=== PATIENT | male | born 1935 ===

== ENCOUNTER 2018-08-12 13:59 | Inpatient (IN) ==
[2018-08-12] MEDS ORDERED: ALBUT/IPRATROP 3MG/0.5MG NEB 3 ML VIAL INH STA (14:22)
[2018-08-12] MEDS ORDERED: SODIUM CHLORIDE 0.9% 1000ML 1,000 ML IV SCH (14:30)
--- NOTE | 2018-08-12 14:40 | XRay Report ---
XR chest 1V portable HISTORY: 83 years-old Male Dyspnea acute shortness of breath COMPARISON: Chest radiograph 07/21/2011 TECHNIQUE: Portable AP view of the chest FINDINGS: Cardiac silhouette is upper limits of normal in size. New right hemidiaphragmatic elevation with righ t basilar opacities and blunting of the right costophrenic angle. No pneumothorax. The left lung is c lear. No overt pulmonary edema. Degenerative changes of the shoulders and spine. IMPRESSION: 1. Right basilar alveolar opacities with suggestion of small right pleural effusion. Correlate clinic ally to exclude pneumonia. 2. Mild right hemidiaphragmatic elevation. The above report was generated using voice recognition software. It may contain grammatical, syntax o r spelling errors. Electronically signed by: Óscar Enriquez M.D. 08/12/2018 2:38 PM
[2018-08-12 14:58] LABS: Appearance Urine Clear (Clear); Bilirubin Urine Negative (Negative); Color Urine Yellow; Glucose Urine UA Negative (Negative); Ketones Urine Negative (Negative); Leukocyte Esterase Urine Negative (Negative); Nitrite Urine Negative (Negative); Protein Urine Negative (Negative); Specific Gravity Urine 1.019 (1.000-1.030); Urobilinogen Urine Negative (Negative); pH Urine 5.5 (4.5-7.5)
[2018-08-12 15:08] LABS: Basophils # (auto) 0.01 K/uL (0-0.2); Basophils % (auto) 0.1 %; Eosinophils # (auto) 0.01 K/uL (0-0.5); Eosinophils % (auto) 0.1 %; Hematocrit (blood only) 47.5 % (42-52); Immature Granulocytes # (auto) 0.02 K/uL (0.00-0.02); Immature Granulocytes % (auto) 0.3 %; Lymphocytes # (auto) 0.98 K/uL (1.2-3.4); Mean Corpuscular Hgb Conc 33.7 g/dL (32-36); Mean Corpuscular Volume 100.6 fL (80-100); Mean Platelet Volume 11.7 fL (7.4-10.4); Monocytes # (auto) 0.05 K/uL (0.11-0.59); Monocytes % (auto) 0.7 %; Neutrophils # (auto) 6.47 K/uL (1.4-6.5); Neutrophils % (auto) 85.8 %; Platelet Count 167 K/uL (130-400); RDW Coefficient of Variation 12.4 % (11.5-14.5); RDW Standard Deviation 45.5 fL (36.4-46.3); Red Blood Count 4.72 M/uL (4.7-6.1); White Blood Count 7.54 K/uL (4.8-10.8)
[2018-08-12] MEDS ORDERED: PIPERACILL/TAZOBAC CONSULT ACTIVE PRN (15:12)
[2018-08-12] MEDS ORDERED: PIPERACILLIN/TAZOBACTAM 4.5 GM/120 ML BAG IV ONE (15:12)
[2018-08-12 15:16] LABS: INR 1.1 (0.9-1.1); Partial Thromboplastin Time 25.6 Seconds (21.0-31.0); Prothrombin Time 10.7 Seconds (9.0-12.0)
[2018-08-12 15:18] LABS: Influenza A virus by PCR Neg for Influ A (Neg); Influenza B virus by PCR Neg for Influ B (Neg)
[2018-08-12 15:19] LABS: Base Excess VBG -0.3 mEq/L; HCO3 VBG 27 mmol/L; Oxygen Saturation VBG < 60.0 %; PCO2 VBG 53 mmHg (38-50); PO2 VBG 28 mmHg; pH VBG 7.32 (7.36-7.41)
[2018-08-12 15:27] LABS: Alanine Aminotransferase 27 U/L (12-78); Albumin Level 3.8 gm/dl (3.4-5.0); Aspartate Aminotransferase 18 U/L (15-37); BUN Creatinine Ratio 12.2 (10-20); Blood Urea Nitrogen 15 mg/dl (7-18); Calcium 8.5 mg/dl (8.5-10.1); Carbon Dioxide 26 mmol/L (21-32); Chloride 109 mmol/L (98-107); Creatinine Clr Calc Pharmacy 57.1 ml/min; Est GFR (African American) 63.2; Est GFR (Non-African American) 54.5; Glucose 108 mg/dl (70-99); Potassium 4.5 mmol/L (3.5-5.1); Sodium 141 mmol/L (136-145)
[2018-08-12 15:32] LABS: Alkaline Phosphatase 59 U/L (45-117); Bilirubin,Total 0.5 mg/dl (0.2-1); Globulin 3.7 gm/dl (2.5-4.0); Total Protein 7.5 gm/dl (6.4-8.2); Troponin I < 0.015 ng/ml (0-0.045)
[2018-08-12] MEDS ORDERED: OPTIRAY 320 125ml IV PRN (15:59)
--- NOTE | 2018-08-12 16:11 | CT Scan Report ---
CT chest w con CLINICAL HISTORY: 83 years-old Male presenting with hypoxic just sedated . TECHNIQUE: Multidetector CT imaging of the chest was performed after the administration of intravenou s contrast. IV contrast: 118 mL of Optiray 320. One or more dose lowering techniques were used consis tent with the principles of ALARA (as low as reasonably achievable), including automatic exposure con trol, mA or kV adjustment to individual patient size, and/or use of iterative reconstruction. COMPARISON: Chest x-ray performed earlier today and chest x-ray from 2012. CT DOSE (mGy.cm): The estimated cumulative dose is 1108.13 mGy.cm. FINDINGS: Optimization Engineer topogram: Elevation of the right hemidiaphragm, unchanged. On soft tissue windows, normal thyroid and thoracic inlet. No axillary, supraclavicular, hilar, or me diastinal lymphadenopathy. Atherosclerosis of the aorta. Mild ectasia of the ascending aorta, which m easures 4.1 cm in diameter. Normal heart size. Coronary artery calcification. Slight mediastinal shif t to the left as a result of right hemidiaphragm elevation. No pericardial or pleural effusion. Upper abdomen normal. On lung windows, no pneumothorax. Partial obstruction of subsegmental right lower lobe airways. Segme ntal and lobar airways to the right middle and right lower lobes are patent though mildly narrowed, w hich may be result of the phase of respiration. Remainder of the airways are right widely patent. Ext ensive consolidation and volume loss of the majority of the right lower lobe and, to a lesser extent, right middle lobe. Mild bronchial wall thickening in the right upper lobe may be present. The left l henry is essentially clear. Evaluation of lung parenchyma mildly degraded by respiratory motion artifac t. On bone windows, degenerative changes of the spine. IMPRESSION: 1. Elevation of the right hemidiaphragm with significant atelectasis of the right lower lobe and to a lesser extent the right middle lobe. Subsegmental airways to these lobes may either be obstructed o r narrowed. More central airways remain patent. 2. Mild ectasia of the osseous and aorta, which measures 4.1 cm. Electronically signed by: Roberto Blackburn M.D. 08/12/2018 4:10 PM
[2018-08-12 17:26] LABS: HCO3 ABG 23 mmol/L (19-24); Oxygen Saturation ABG 74.7 % (90-95); PCO2 ABG 44 mmHg (35-46); PO2 ABG 42 mm/Hg (80-95); pH ABG 7.33 (7.35-7.45)
[2018-08-12 17:27] LABS: Allen Test POS (Pos)
--- NOTE | 2018-08-12 18:01 | Emergency Department Note ---
Entered by Robb Tang acting as a scribe for History of Present Illness General Chief complaint: Respiratory Problems Source: patient Limitations: no limitations History of Present Illness Provider complaint: Hypoxia Onset (ago): minute(s) Location: chest (Hypoxia) Pain Consistency: + constant Quality: + other (Hypoxia) Associated symptoms: + denies other symptoms Treatments prior to arrival: none The patient is an 83 year old male who presents to the Emergency Room from the surgical center for hypoxia that was noticed shortly prior to arrival. The patient and his state that the patient went for surgery this morning at 1015, 4 hours ago. He notes that he was to have his right rotator cuff repaired today. When they began the surgery they decided that there was no repair necessary, but they did perform debridement. As the patient was in the post-op waiting area he became hypoxic. The patient denies any chest pain, shortness of breath, nausea, vomiting, diarrhea, or dizziness/weakness. He has no history of asthma or COPD. The patient does have a history of TIA and was on a blood thinner, but stopped this about 2 weeks prior to the operation today. Home Medications Home Medications Medication Instructions Recorded Confirmed Type B-complex with vitamin C [Super B 1 tab PO DAILY 08/12/18 08/12/18 History Complex-Vitamin C] Ca carb-Ca gluc-Mg ox-Mg gluco 0 mg PO DAILY 08/12/18 08/12/18 History [Calcium Magnesium] aspirin 325 mg PO DAILY 08/12/18 08/12/18 History aspirin-dipyridamole [Aggrenox] 1 cap PO BID 08/12/18 08/12/18 History atorvastatin 40 mg PO DAILY 08/12/18 08/12/18 History diazepam 5 mg PO Q8 PRN 08/12/18 08/12/18 History multivitamin 1 tab PO DAILY 08/12/18 08/12/18 History oxycodone-acetaminophen [Percocet] 1 - 2 tab PO Q6H PRN 08/12/18 08/12/18 History turmeric root extract 1,053 mg PO DAILY 08/12/18 08/12/18 History zinc 15 mg PO DAILY 08/12/18 08/12/18 History Allergies Allergy/AdvReac Type Severity Reaction Status Date / Time No Known Allergies Allergy Unverified 08/12/18 14:38 Past Med/Surg History Social History marital status: Current Living Situation: Significant Other current occupational status: retired Other Information That Helps Us Care for You: No Feels Safe at Home: Yes Safety Concerns: Feels Safe At This Time Smoking Status: Never smoker Hx Alcohol Use: No Hx Substance Use: No Beliefs That Will Affect Care: None Preferred Language: Khmer Communication Ability: Effective Review of Systems See HPI for pertinent positives & negatives. and A total of 10 systems reviewed and were otherwise negative Physical Exam Vital Signs Vital Signs - 24 hr 08/12/18 14:06 08/12/18 14:10 08/12/18 14:29 Temperature 36.7 C Temperature Source Oral Sepsis Recent Fever Within 48 Hours No Sepsis New/Unexplained Change in Mental Status No Sepsis Action Taken by Nursing No Action Required Pulse Rate 106 H 100 H Pulse Rate [Apical] Pulse Rhythm Regular Regular Pulse Strength Normal Respiratory Rate 20 20 Respiratory Effort / Characteristics Non-Labored Respiratory Depth Normal Respiratory Pattern Regular Blood Pressure 137/84 Blood Pressure [Right Arm] Blood Pressure Mean 101 Blood Pressure Mean [Right Arm] Blood Pressure Position Sitting Pulse Oximetry 96 86 L Oxygen Delivery Method Non-rebreather Non-rebreather Non-rebreather Oxygen Flow Rate 15 15 15 Fraction of Inspired Oxygen 85 08/12/18 14:37 08/12/18 16:39 08/12/18 16:48 Temperature Temperature Source Sepsis Recent Fever Within 48 Hours Sepsis New/Unexplained Change in Mental Status Sepsis Action Taken by Nursing Pulse Rate 109 H Pulse Rate [Apical] 100 H Pulse Rhythm Pulse Strength Respiratory Rate 24 22 Respiratory Effort / Characteristics Spontaneous Short of Breath SOB on Exertion Respiratory Depth Respiratory Pattern Tachypnea Blood Pressure 161/87 H Blood Pressure [Right Arm] 151/97 H Blood Pressure Mean 111 Blood Pressure Mean [Right Arm] 115 Blood Pressure Position Pulse Oximetry 86 L 91 Oxygen Delivery Method BiPAP CPAP Oxygen Flow Rate 15 Fraction of Inspired Oxygen 08/12/18 17:48 Temperature Temperature Source Sepsis Recent Fever Within 48 Hours Sepsis New/Unexplained Change in Mental Status Sepsis Action Taken by Nursing Pulse Rate Pulse Rate [Apical] 107 H Pulse Rhythm Pulse Strength Respiratory Rate 18 Respiratory Effort / Characteristics Respiratory Depth Respiratory Pattern Blood Pressure Blood Pressure [Right Arm] 154/88 H Blood Pressure Mean Blood Pressure Mean [Right Arm] 110 Blood Pressure Position Pulse Oximetry 91 Oxygen Delivery Method BiPAP Oxygen Flow Rate Fraction of Inspired Oxygen GENERAL: Sitting up in bed, alert, disheveled appaearing, non-toxic. Wearing non -rebreather. EYE EXAM: normal conjunctiva. OROPHARYNX: no exudate, no erythema, lips, buccal mucosa, and tongue normal and mucous membranes are moist NECK: supple, no nuchal rigidity, no adenopathy, non-tender LUNGS: Clear to auscultation. Normal chest wall mechanics HEART: no murmurs, S1 normal and S2 normal ABDOMEN: abdomen soft, non-tender, normo-active bowel, sounds, no masses, no rebound or guarding. BACK: Back is symmetrical on inspection and there is no deformity, no midline tenderness, no CVA tenderness. SKIN: no rashes and no bruising UPPER EXTREMITIES: Left upper extremity grossly normal. Right upper extremity in sling with pos-operative dressing on right shoulder. LOWER EXTREMITIES: No pitting edema. NEURO EXAM: Normal sensorium, cranial nerves II-XII grossly intact, normal speech, no gross weakness of arms, no gross weakness of legs. Course ED COURSE: Vital signs were reviewed and showed hypertension, tachycardia, and hypoxia. The patients medical record was reviewed The above diagnostic studies were performed and reviewed. ED treatments and interventions as stated above. 1414: The patient was evaluated in room A12A. A complete history and physical examination was performed. 1459: I checked on the patient. He is 92% on Bi-pap. 1636: I reviewed the patient's case with [facility] Hospitalist ANANDA. She will evaluate the patient for further management. 1641: Upon reevaluation, the patient is resting in bed. I discussed my findings with the patient and he understands and agrees with the treatment plan. Based on the patients age, coexisting illnesses, exam and lab findings the decision to treat as an inpatient was made. The patient remained stable while under my care. The patient will be evaluated for further management. Administered Medications Ioversol (Optiray 320 125ml) 118 ml IV ONCE PRN PRN Reason: Interaction Checking Stop: 08/16/18 15:58 Last Admin: 08/12/18 16:03 Dose: 118 ml Discontinued Medications Albuterol (Duoneb) 3 ml INH NOW STA Stop: 08/12/18 14:23 Last Admin: 08/12/18 14:33 Dose: 3 ml Sodium Chloride (Nss 1000ml) 1,000 mls @ 999 mls/hr IV .Q1H1M REI Stop: 08/12/18 15:30 Last Infusion: 08/12/18 16:31 Dose: 0 mls/hr Admin: 08/12/18 15:27 Dose: 999 mls/hr Piperacillin Sod/Tazobactam Sod (Zosyn) 4.5 gm in 120 mls @ 240 mls/hr IV NOW ONE Stop: 08/12/18 15:41 Last Infusion: 08/12/18 16:19 Dose: 0 mls/hr Admin: 08/12/18 15:32 Dose: 240 mls/hr Medical Decision Making Differential Diagnosis Differential diagnosis: Etiologies such as infections, reactive airway disease, COPD, pneumonia, pleural effusion, pulmonary edema, ARDS, pneumothorax, CHF, cardiac ischemia, cardiac tamponade, dysrhythmia, anemia, pulmonary embolism, musculoskeletal, gastrointestinal process, as well as others were entertained. Medical Records Attestation: I reviewed the patient's medical records. Home Medications Current Medication List: was personally reviewed by me Laboratory Data Attestation: I reviewed the patient's lab results. Result diagrams: 08/12/18 14:53 08/12/18 14:53 Lab Results 08/12/18 08/12/18 08/12/18 Range/Units 14:30 14:50 14:53 WBC 7.54 (4.8-10.8) K/uL RBC 4.72 (4.7-6.1) M/uL Hgb 16.0 (14.0-18.0) g/dL Hct 47.5 (42-52) % MCV 100.6 H (80-100) fL MCH 33.9 (25-34) pg MCHC 33.7 (32-36) g/dL RDW Std Deviation 45.5 (36.4-46.3) fL RDW Coeff of Kellee 12.4 (11.5-14.5) % Plt Count 167 (130-400) K/uL MPV 11.7 H (7.4-10.4) fL Immature Gran % (Auto) 0.3 % Neut % (Auto) 85.8 % Lymph % (Auto) 13.0 % Desoto % (Auto) 0.7 % Eos % (Auto) 0.1 % Baso % (Auto) 0.1 % Immature Gran # (Auto) 0.02 (0.00-0.02) K/uL Neut # (Auto) 6.47 (1.4-6.5) K/uL Lymph # (Auto) 0.98 L (1.2-3.4) K/uL [place] # (Auto) 0.05 L (0.11-0.59) K/uL Eos # (Auto) 0.01 (0-0.5) K/uL Baso # (Auto) 0.01 (0-0.2) K/uL PT (9.0-12.0) Seconds INR (0.9-1.1) APTT (21.0-31.0) Seconds PTT Ratio ABG pH (7.35-7.45) ABG pCO2 (35-46) mmHg ABG pO2 (80-95) mm/Hg ABG HCO3 (19-24) mmol/L ABG O2 Saturation (90-95) % ABG Base Excess (-9-1.8) mEq/L José Test (Pos) VBG pH (7.36-7.41) VBG pCO2 (38-50) mmHg VBG pO2 mmHg VBG HCO3 mmol/L VBG O2 Saturation % VBG Base Excess mEq/L Barometric Pressure mm/Hg Oxygen Given Sodium (136-145) mmol/L Potassium (3.5-5.1) mmol/L Chloride (98-107) mmol/L Carbon Dioxide (21-32) mmol/L Anion Gap (3-11) BUN (7-18) mg/dl Creatinine (0.6-1.4) mg/dl Est Cr Clr Drug Dosing ml/min Est GFR ( Amer) Est GFR (Non-Af Amer) BUN/Creatinine Ratio (10-20) Glucose (70-99) mg/dl Calcium (8.5-10.1) mg/dl Total Bilirubin (0.2-1) mg/dl AST (15-37) U/L ALT (12-78) U/L Alkaline Phosphatase (45-117) U/L Troponin I (0-0.045) ng/ml Total Protein (6.4-8.2) gm/dl Albumin (3.4-5.0) gm/dl Globulin (2.5-4.0) gm/dl Albumin/Globulin Ratio (0.9-2) Urine Color Yellow Urine Appearance Clear (Clear) Urine pH 5.5 (4.5-7.5) Ur Specific Sherwood 1.019 (1.000-1.030) Urine Protein Negative (Negative) Urine Glucose (UA) Negative (Negative) Urine Ketones Negative (Negative) Urine Blood Negative (Negative) Urine Nitrite Negative (Negative) Urine Bilirubin Negative (Negative) Urine Urobilinogen Negative (Negative) Ur Leukocyte Esterase Negative (Negative) Influenza Type A (PCR) Neg for Influ A (Neg) Influenza Type B (PCR) Neg for Influ B (Neg) 08/12/18 08/12/18 08/12/18 Range/Units 14:53 14:53 14:53 WBC (4.8-10.8) K/uL RBC (4.7-6.1) M/uL Hgb (14.0-18.0) g/dL Hct (42-52) % MCV (80-100) fL MCH (25-34) pg MCHC (32-36) g/dL RDW Std Deviation (36.4-46.3) fL RDW Coeff of Kellee (11.5-14.5) % Plt Count (130-400) K/uL MPV (7.4-10.4) fL Immature Gran % (Auto) % Neut % (Auto) % Lymph % (Auto) % Desoto % (Auto) % Eos % (Auto) % Baso % (Auto) % Immature Gran # (Auto) (0.00-0.02) K/uL Neut # (Auto) (1.4-6.5) K/uL Lymph # (Auto) (1.2-3.4) K/uL Desoto # (Auto) (0.11-0.59) K/uL Eos # (Auto) (0-0.5) K/uL Baso # (Auto) (0-0.2) K/uL PT 10.7 (9.0-12.0) Seconds INR 1.1 (0.9-1.1) APTT 25.6 (21.0-31.0) Seconds PTT Ratio 1.0 ABG pH (7.35-7.45) ABG pCO2 (35-46) mmHg ABG pO2 (80-95) mm/Hg ABG HCO3 (19-24) mmol/L ABG O2 Saturation (90-95) % ABG Base Excess (-9-1.8) mEq/L José Test (Pos) VBG pH 7.32 L (7.36-7.41) VBG pCO2 53 H (38-50) mmHg VBG pO2 28 mmHg VBG HCO3 27 mmol/L VBG O2 Saturation < 60.0 % VBG Base Excess -0.3 mEq/L Barometric Pressure 738.6 mm/Hg Oxygen Given Sodium 141 (136-145) mmol/L Potassium 4.5 (3.5-5.1) mmol/L Chloride 109 H (98-107) mmol/L Carbon Dioxide 26 (21-32) mmol/L Anion Gap 6.0 (3-11) BUN 15 (7-18) mg/dl Creatinine 1.22 (0.6-1.4) mg/dl Est Cr Clr Drug Dosing 57.1 ml/min Est GFR ( Amer) 63.2 Est GFR (Non-Af Amer) 54.5 BUN/Creatinine Ratio 12.2 (10-20) Glucose 108 H (70-99) mg/dl Calcium 8.5 (8.5-10.1) mg/dl Total Bilirubin 0.5 (0.2-1) mg/dl AST 18 (15-37) U/L ALT 27 (12-78) U/L Alkaline Phosphatase 59 (45-117) U/L Troponin I < 0.015 (0-0.045) ng/ml Total Protein 7.5 (6.4-8.2) gm/dl Albumin 3.8 (3.4-5.0) gm/dl Globulin 3.7 (2.5-4.0) gm/dl Albumin/Globulin Ratio 1.0 (0.9-2) Urine Color Urine Appearance (Clear) Urine pH (4.5-7.5) Ur Specific Sherwood (1.000-1.030) Urine Protein (Negative) Urine Glucose (UA) (Negative) Urine Ketones (Negative) Urine Blood (Negative) Urine Nitrite (Negative) Urine Bilirubin (Negative) Urine Urobilinogen (Negative) Ur Leukocyte Esterase (Negative) Influenza Type A (PCR) (Neg) Influenza Type B (PCR) (Neg) 08/12/18 Range/Units 17:13 WBC (4.8-10.8) K/uL RBC (4.7-6.1) M/uL Hgb (14.0-18.0) g/dL Hct (42-52) % MCV (80-100) fL MCH (25-34) pg MCHC (32-36) g/dL RDW Std Deviation (36.4-46.3) fL RDW Coeff of Kellee (11.5-14.5) % Plt Count (130-400) K/uL MPV (7.4-10.4) fL Immature Gran % (Auto) % Neut % (Auto) % Lymph % (Auto) % Desoto % (Auto) % Eos % (Auto) % Baso % (Auto) % Immature Gran # (Auto) (0.00-0.02) K/uL Neut # (Auto) (1.4-6.5) K/uL Lymph # (Auto) (1.2-3.4) K/uL Des[place] # (Auto) (0.11-0.59) K/uL Eos # (Auto) (0-0.5) K/uL Baso # (Auto) (0-0.2) K/uL PT (9.0-12.0) Seconds INR (0.9-1.1) APTT (21.0-31.0) Seconds PTT Ratio ABG pH 7.33 L (7.35-7.45) ABG pCO2 44 (35-46) mmHg ABG pO2 42 L (80-95) mm/Hg ABG HCO3 23 (19-24) mmol/L ABG O2 Saturation 74.7 L (90-95) % ABG Base Excess -3.4 (-9-1.8) mEq/L José Test POS (Pos) VBG pH (7.36-7.41) VBG pCO2 (38-50) mmHg VBG pO2 mmHg VBG HCO3 mmol/L VBG O2 Saturation % VBG Base Excess mEq/L Barometric Pressure 738.6 mm/Hg Oxygen Given FIO2 100% O2 Sodium (136-145) mmol/L Potassium (3.5-5.1) mmol/L Chloride (98-107) mmol/L Carbon Dioxide (21-32) mmol/L Anion Gap (3-11) BUN (7-18) mg/dl Creatinine (0.6-1.4) mg/dl Est Cr Clr Drug Dosing ml/min Est GFR ( Amer) Est GFR (Non-Af Amer) BUN/Creatinine Ratio (10-20) Glucose (70-99) mg/dl Calcium (8.5-10.1) mg/dl Total Bilirubin (0.2-1) mg/dl AST (15-37) U/L ALT (12-78) U/L Alkaline Phosphatase (45-117) U/L Troponin I (0-0.045) ng/ml Total Protein (6.4-8.2) gm/dl Albumin (3.4-5.0) gm/dl Globulin (2.5-4.0) gm/dl Albumin/Globulin Ratio (0.9-2) Urine Color Urine Appearance (Clear) Urine pH (4.5-7.5) Ur Specific Sherwood (1.000-1.030) Urine Protein (Negative) Urine Glucose (UA) (Negative) Urine Ketones (Negative) Urine Blood (Negative) Urine Nitrite (Negative) Urine Bilirubin (Negative) Urine Urobilinogen (Negative) Ur Leukocyte Esterase (Negative) Influenza Type A (PCR) (Neg) Influenza Type B (PCR) (Neg) Imaging Data Attestation: I personally reviewed and interpreted this imaging study as follows : Radiologist's Impression: CT chest w con CLINICAL HISTORY: 83 years-old Male presenting with hypoxic just sedated . TECHNIQUE: Multidetector CT imaging of the chest was performed after the administration of intravenous contrast. IV contrast: 118 mL of Optiray 320. One or more dose lowering techniques were used consistent with the principles of ALARA (as low as reasonably achievable), including automatic exposure control, mA or kV adjustment to individual patient size, and/or use of iterative reconstruction. COMPARISON: Chest x-ray performed earlier today and chest x-ray from 2012. CT DOSE (mGy.cm): The estimated cumulative dose is 1108.13 mGy.cm. FINDINGS: Cryptographer topogram: Elevation of the right hemidiaphragm, unchanged. On soft tissue windows, normal thyroid and thoracic inlet. No axillary, supraclavicular, hilar, or mediastinal lymphadenopathy. Atherosclerosis of the aorta. Mild ectasia of the ascending aorta, which measures 4.1 cm in diameter. Normal heart size. Coronary artery calcification. Slight mediastinal shift to the left as a result of right hemidiaphragm elevation. No pericardial or pleural effusion. Upper abdomen normal. On lung windows, no pneumothorax. Partial obstruction of subsegmental right lower lobe airways. Segmental and lobar airways to the right middle and right lower lobes are patent though mildly narrowed, which may be result of the phase of respiration. Remainder of the airways are right widely patent. Extensive consolidation and volume loss of the majority of the right lower lobe and, to a lesser extent, right middle lobe. Mild bronchial wall thickening in the right upper lobe may be present. The left lung is essentially clear. Evaluation of lung parenchyma mildly degraded by respiratory motion artifact. On bone windows, degenerative changes of the spine. IMPRESSION: 1. Elevation of the right hemidiaphragm with significant atelectasis of the right lower lobe and to a lesser extent the right middle lobe. Subsegmental airways to these lobes may either be obstructed or narrowed. More central airways remain patent. 2. Mild ectasia of the osseous and aorta, which measures 4.1 cm. Electronically signed by: Roberto Blackburn M.D. 08/12/2018 4:10 PM XR chest 1V portable HISTORY: 83 years-old Male Dyspnea acute shortness of breath COMPARISON: Chest radiograph 07/21/2011 TECHNIQUE: Portable AP view of the chest FINDINGS: Cardiac silhouette is upper limits of normal in size. New right hemidiaphragmatic elevation with right basilar opacities and blunting of the right costophrenic angle. No pneumothorax. The left lung is clear. No overt pulmonary edema. Degenerative changes of the shoulders and spine. IMPRESSION: 1. Right basilar alveolar opacities with suggestion of small right pleural effusion. Correlate clinically to exclude pneumonia. 2. Mild right hemidiaphragmatic elevation. The above report was generated using voice recognition software. It may contain grammatical, syntax or spelling errors. Electronically signed by: Óscar Enriquez M.D. 08/12/2018 2:38 PM ECG Data Attestation: I personally reviewed and interpreted this ECG as follows: Indication: SOB/dyspnea Rate (beats per minute): 88 Findings: + other (LAD), + Q waves (Septal) and + T-wave inversion (High lateral ) Comparison ECG Date: from (07/21/2011) Change: the following changes noted (New septal q-waves) Blood Pressure Blood Pressure Findings: Elevated blood pressure Blood Pressure Disposition: further management by hospitalist MDM Narrative Patient is an 83-year-old male that presents the ER postop on a nonrebreather satting at 83-85% on 15 L. This was exchanged out for BiPAP and his O2 increased to 92%. Patient has no complaints. Labs were obtained and showed no significant leukocytosis or anemia. INR was unremarkable. VBG with pH of 7.32 and a CO2 of 53. BMP was fairly unremarkable. LFTs and troponin were normal. UA was unremarkable. Influenza was negative. Patient was given IV Zosyn secondary to what I favor is an aspiration. Chest x-ray suggest an infiltrate in the right lower lobe and CT confirms atelectasis versus aspiration. Patient was updated bedside. Discussed with the hospitalist. Patient was given neb treatment. Patient was admitted to hospitalist on BiPAP with oxygenation high 80s to low 90s. Impression & Plan Aspiration into airway, Hypoxia, Atelectasis Critical Care Time I have personally spent greater than 35 minutes of critical care time in the direct management of this patient. This includes bedside care, interpretation of diagnostic studies, and testing, discussion with consultants, patient, and family members, and other required patient management activities. This 35 minutes is in excess of all separately billable procedures. Critical Care Time: Yes Total Critical Care Time: 35 Discharge Plan Visit Data Chief Complaint: Respiratory Problems ED Provider: Ralph Rondon Discharge Problem: Aspiration into airway, Hypoxia, Atelectasis Patient Disposition: Being Evaluated by Hospitalist Forms Stand Alone Forms: My [facility] [place] [employer] Prescriptions Prescriptions: No Action multivitamin Tablet 1 tab PO DAILY RF: 0 atorvastatin 40 mg Tablet 40 mg PO DAILY RF: 0 aspirin-dipyridamole [Aggrenox] 25-200 mg Capsule, Er Multiphase 12 Hr 1 cap PO BID RF: 0 aspirin 325 mg Tablet 325 mg PO DAILY RF: 0 oxycodone-acetaminophen [Percocet] 5-325 mg Tablet 1 - 2 tab PO Q6H PRN (Reason: Pain) RF: 0 zinc 50 mg Tablet 15 mg PO DAILY RF: 0 diazepam 5 mg Tablet 5 mg PO Q8 PRN (Reason: Anxiety) RF: 0 B-complex with vitamin C [Super B Complex-Vitamin C] Tablet 1 tab PO DAILY RF: 0 Ca carb-Ca gluc-Mg ox-Mg gluco [Calcium Magnesium] 500 mg calcium -250 mg Tablet PO DAILY RF: 0 turmeric root extract 1,053 mg Tablet 1,053 mg PO DAILY RF: 0 Referrals Referrals: Alan Vega DO [Primary Care Provider] - The scribe's documentation has been prepared under my direction and personally reviewed by me in its entirety. I confirm that the note above accurately reflects all work, treatment, procedures, and medical decision making performed by me.
--- NOTE | 2018-08-12 18:20 | History & Physical Report ---
Date of Service August 12, 2018 Assessment & Plan (1) Acute and chronic respiratory failure with hypoxia: -Admit to telemetry -Patient presenting from [facility] for evaluation of hypoxia postprocedure -Despite O2 sat being in the 80s, patient has remained asymptomatic -Currently requiring BiPAP to maintain O2 sat ~ 90% -ABG: PH 7.33, CO2 44, O2 42, HCO3 23 -CT chest showing: Significant atelectasis of the right lower lobe and to a lesser extent the right middle lobe. -? Possible aspiration vs. atelectasis -S/P Zosyn in the ED, will continue with for now for empiric aspiration coverage -Continue BiPAP, wean as able -Incentive spirometry -Repeat CXR and ABG in a.m. (2) CKD (chronic kidney disease), stage III: - baseline creat ~1.3-1.5 - creat noted to be 1.2 today - continue to monitor, avoid nephrotoxic agents when able (3) TIA (transient ischemic attack): -ASA and Aggrenox on hold preoperatively -per Dr. Negrete instructions - ASA and Aggrenox can be resumed 2/ if no signs of bleeding from surgical site -Continue statin (4) History of arthroscopy of right shoulder: -s/p shoulder arthroscopy 08/[address] Negrete -follow up with Dr. Negrete per instructions (5) DVT prophylaxis: -SCDs due to recent surgical procedure today History of Present Illness Chief Complaint: Hypoxia Primary Care Provider: Alan Vega DO 83-year-old male who was sent to the ED from [facility] for evaluation of hypoxia. Patient was they are having a scheduled arthroscopic procedure of his right shoulder. Postoperatively, patient developed profound hypoxia with oxygen saturations in the 80s. Patient was asymptomatic without chest pain or shortness of breath. He was then brought to the ED for further evaluation. Patient reports he has been feeling well recently. He denies any other recent illnesses, fevers, chills. He denies chest pain shortness of breath. No lightheadedness, dizziness, diaphoresis, syncopal events. He denies abdominal pain, nausea, vomiting, diarrhea. He denies any urinary symptoms. In the ED, CTA chest was negative for pulmonary embolism however demonstrated significant atelectasis of the right lower lobe and to a lesser extent the right middle lobe. Patient's oxygen saturation remained in the 80s with supplemental oxygen and was therefore placed on BiPAP and is now saturating in the low 90s. Labs are unremarkable. Patient was given IVF and a dose of IV Zosyn. Allergies Allergy/AdvReac Type Severity Reaction Status Date / Time No Known Allergies Allergy Unverified 08/12/18 14:38 Home Medications Home Medications Medication Instructions Recorded Confirmed Type B-complex with vitamin C [Super B 1 tab PO DAILY 08/12/18 08/12/18 History Complex-Vitamin C] aspirin 325 mg PO DAILY 08/12/18 08/12/18 History aspirin-dipyridamole [Aggrenox] 1 cap PO DAILY 08/12/18 08/12/18 History atorvastatin 40 mg PO DAILY 08/12/18 08/12/18 History kbutfkn-ltsyiuure-fluf 1 tab PO DAILY 08/12/18 08/12/18 History diazepam 5 mg PO Q8 PRN 08/12/18 08/12/18 History multivitamin 1 tab PO DAILY 08/12/18 08/12/18 History oxycodone-acetaminophen [Percocet] 1 - 2 tab PO Q6H PRN 08/12/18 08/12/18 History turmeric root extract 1,053 mg PO DAILY 08/12/18 08/12/18 History Past Med/Surg History Medical History History of duodenal ulcer (Chronic) CKD (chronic kidney disease), stage III (Chronic) TIA (transient ischemic attack) (Chronic) Dyslipidemia (Chronic) Surgical History History of arthroscopy of right shoulder (Chronic) History of total right knee replacement (Chronic) Social History marital status: Current Living Situation: Significant Other current occupational status: retired Other Information That Helps Us Care for You: No Feels Safe at Home: Yes Safety Concerns: Feels Safe At This Time Smoking Status: Never smoker Hx Alcohol Use: Yes Alcohol Intake Frequency: a few times a week Hx Substance Use: No Beliefs That Will Affect Care: None Preferred Language: Togolese Communication Ability: Effective Review of Systems ROS per HPI, all other systems reviewed and negative Physical Exam 2 Vital Signs (Past 24 Hours): Last Vital Signs Temp 36.7 C 08/12/18 14:06 Pulse 107 H 08/12/18 17:48 Resp 18 08/12/18 17:48 BP 154/88 H 08/12/18 17:48 Pulse Ox 91 08/12/18 17:48 Constitutional: WD/WN, vitals as above Eyes: PERRL, conjunctivae normal, anicteric sclerae ENMT: external ear and nose normal, oropharynx normal Respiratory: normal respiratory effort; no respiratory distress Auscultation: + diminished lung sounds (Right mid to lower lung hazel otherwise clear) Cardiovascular: Rate/Rhythm: regular rate and regular rhythm Vessels: normal peripheral pulses Extremities: no edema Gastrointestinal (Abdomen): normal bowel sounds, soft, nontender, no hepatosplenomegaly Musculoskeletal: S/P right shoulder surgery, surgical dressing dry and intact , right upper extremity in sling Skin: no rashes, warm and dry Neurologic: PERRL, EOMI, accommodation nl, no face palsy, no dysarthria Psychiatric: A+Ox3, euthymic affect Results & Data Laboratory Results Laboratory Last Values WBC 7.54 K/uL (4.8-10.8) 08/12/18 14:53 RBC 4.72 M/uL (4.7-6.1) 08/12/18 14:53 Hgb 16.0 g/dL (14.0-18.0) 08/12/18 14:53 Hct 47.5 % (42-52) 08/12/18 14:53 MCV 100.6 fL (80-100) H 08/12/18 14:53 MCH 33.9 pg (25-34) 08/12/18 14:53 MCHC 33.7 g/dL (32-36) 08/12/18 14:53 RDW Std Deviation 45.5 fL (36.4-46.3) 08/12/18 14:53 RDW Coeff of Kellee 12.4 % (11.5-14.5) 08/12/18 14:53 Plt Count 167 K/uL (130-400) 08/12/18 14:53 MPV 11.7 fL (7.4-10.4) H 08/12/18 14:53 Immature Gran % (Auto) 0.3 % 08/12/18 14:53 Neut % (Auto) 85.8 % 08/12/18 14:53 Lymph % (Auto) 13.0 % 08/12/18 14:53 [place] % (Auto) 0.7 % 08/12/18 14:53 Eos % (Auto) 0.1 % 08/12/18 14:53 Baso % (Auto) 0.1 % 08/12/18 14:53 Immature Gran # (Auto) 0.02 K/uL (0.00-0.02) 08/12/18 14:53 Neut # (Auto) 6.47 K/uL (1.4-6.5) 08/12/18 14:53 Lymph # (Auto) 0.98 K/uL (1.2-3.4) L 08/12/18 14:53 [place] # (Auto) 0.05 K/uL (0.11-0.59) L 08/12/18 14:53 Eos # (Auto) 0.01 K/uL (0-0.5) 08/12/18 14:53 Baso # (Auto) 0.01 K/uL (0-0.2) 08/12/18 14:53 PT 10.7 Seconds (9.0-12.0) 08/12/18 14:53 INR 1.1 (0.9-1.1) 08/12/18 14:53 APTT 25.6 Seconds (21.0-31.0) 08/12/18 14:53 PTT Ratio 1.0 08/12/18 14:53 ABG pH 7.33 (7.35-7.45) L 08/12/18 17:13 ABG pCO2 44 mmHg (35-46) 08/12/18 17:13 ABG pO2 42 mm/Hg (80-95) L 08/12/18 17:13 ABG HCO3 23 mmol/L (19-24) 08/12/18 17:13 ABG O2 Saturation 74.7 % (90-95) L 08/12/18 17:13 ABG Base Excess -3.4 mEq/L (-9-1.8) 08/12/18 17:13 José Test POS (Pos) 08/12/18 17:13 VBG pH 7.32 (7.36-7.41) L 08/12/18 14:53 VBG pCO2 53 mmHg (38-50) H 08/12/18 14:53 VBG pO2 28 mmHg 08/12/18 14:53 VBG HCO3 27 mmol/L 08/12/18 14:53 VBG O2 Saturation < 60.0 % 08/12/18 14:53 VBG Base Excess -0.3 mEq/L 08/12/18 14:53 Barometric Pressure 738.6 mm/Hg 08/12/18 17:13 Oxygen Given FIO2 100% O2 08/12/18 17:13 Sodium 141 mmol/L (136-145) 08/12/18 14:53 Potassium 4.5 mmol/L (3.5-5.1) 08/12/18 14:53 Chloride 109 mmol/L (98-107) H 08/12/18 14:53 Carbon Dioxide 26 mmol/L (21-32) 08/12/18 14:53 Anion Gap 6.0 (3-11) 08/12/18 14:53 BUN 15 mg/dl (7-18) 08/12/18 14:53 Creatinine 1.22 mg/dl (0.6-1.4) 08/12/18 14:53 Est Cr Clr Drug Dosing 57.1 ml/min 08/12/18 14:53 Est GFR ( Amer) 63.2 08/12/18 14:53 Est GFR (Non-Af Amer) 54.5 08/12/18 14:53 BUN/Creatinine Ratio 12.2 (10-20) 08/12/18 14:53 Glucose 108 mg/dl (70-99) H 08/12/18 14:53 Calcium 8.5 mg/dl (8.5-10.1) 08/12/18 14:53 Total Bilirubin 0.5 mg/dl (0.2-1) 08/12/18 14:53 AST 18 U/L (15-37) 08/12/18 14:53 ALT 27 U/L (12-78) 08/12/18 14:53 Alkaline Phosphatase 59 U/L (45-117) 08/12/18 14:53 Troponin I < 0.015 ng/ml (0-0.045) 08/12/18 14:53 Total Protein 7.5 gm/dl (6.4-8.2) 08/12/18 14:53 Albumin 3.8 gm/dl (3.4-5.0) 08/12/18 14:53 Globulin 3.7 gm/dl (2.5-4.0) 08/12/18 14:53 Albumin/Globulin Ratio 1.0 (0.9-2) 08/12/18 14:53 Urine Color Yellow 08/12/18 14:50 Urine Appearance Clear (Clear) 08/12/18 14:50 Urine pH 5.5 (4.5-7.5) 08/12/18 14:50 Ur Specific [place] 1.019 (1.000-1.030) 08/12/18 14:50 Urine Protein Negative (Negative) 08/12/18 14:50 Urine Glucose (UA) Negative (Negative) 08/12/18 14:50 Urine Ketones Negative (Negative) 08/12/18 14:50 Urine Blood Negative (Negative) 08/12/18 14:50 Urine Nitrite Negative (Negative) 08/12/18 14:50 Urine Bilirubin Negative (Negative) 08/12/18 14:50 Urine Urobilinogen Negative (Negative) 08/12/18 14:50 Ur Leukocyte Esterase Negative (Negative) 08/12/18 14:50 Influenza Type A (PCR) Neg for Influ A (Neg) 08/12/18 14:30 Influenza Type B (PCR) Neg for Influ B (Neg) 08/12/18 14:30 Diagnostic Findings CXR IMPRESSION: 1. Right basilar alveolar opacities with suggestion of small right pleural effusion. Correlate clinically to exclude pneumonia. 2. Mild right hemidiaphragmatic elevation. CTA CHEST IMPRESSION: 1. Elevation of the right hemidiaphragm with significant atelectasis of the right lower lobe and to a lesser extent the right middle lobe. Subsegmental airways to these lobes may either be obstructed or narrowed. More central airways remain patent. 2. Mild ectasia of the osseous and aorta, which measures 4.1 cm. Code Status & VTE Plan VTE Prophylaxis Plan VTE Prophylaxis will be ordered: Yes Supervising Physician Co-Signing Physician Notes Agree with above H and P. Briefly 83 was at [facility] for right shoulder arthoscopy. Post procedure patient was hypoxic with oxygen sats in 80' s and was brought to Er. CTA chest no PE but showing right middle and lower lobe atelectasis. Currently on bipap and saturating ok. Patient is feeling fine now. Denies any chest pain. No cough. No recent fevers/chills. No nasuea. p/e Ge Not in acute distress Cvs s1 and s2 heard no murmurs Rs cta b/l no added sounds Abd benign [employer] non focal Ext no edema, no erythema Labs: reviewed a/p Hypoxia post procedure CTA chest right middle and lower lobe atelectasis? on Bipap and saturating fine on exam breath sounds heard on right bases. continue bipap for now may need repeat imaging in am if any concern to consider pulmonary consult close monitor when off of bipap incentive spirometry TIA to resume aggrenox in am
[2018-08-12] MEDS ORDERED: OXYCODONE/ACETAMINOPHEN 5mg/325mg TAB PO PRN (18:44)
[2018-08-12] MEDS ORDERED: ACETAMINOPHEN 325 MG TAB PO PRN (18:44)
[2018-08-12] MEDS: PIPERACILLIN/TAZOBACTAM 3.375 GM in DEXTROSE 5% 100 ML IV SCH (21:48)
[2018-08-12] MEDS ORDERED: XOPENEX/ATROVENT 1.25mg/0.5MG NEB COMBO NEB STA (22:02)
[2018-08-12] MEDS ORDERED: methylPREDNISolone 40 MG in SYRINGE 0 ML IV ONE (22:15)
[2018-08-12] MEDS: IPRATROPIUM BROMIDE NEB SOLN 0.02% 2.5 ML VIAL INH SCH (22:32)
[2018-08-12] MEDS: LEVALBUTEROL 1.25MG/0.5ML NEB INH SCH (22:32)
[2018-08-12 22:37] LABS: HCO3 ABG 23 mmol/L (19-24); Oxygen Saturation ABG 89.4 % (90-95); PCO2 ABG 38 mmHg (35-46); PO2 ABG 57 mm/Hg (80-95); pH ABG 7.39 (7.35-7.45)
[2018-08-12 22:38] LABS: Allen Test Pos (Pos)
--- NOTE | 2018-08-12 22:48 | XRay Report ---
XR chest 1V portable CLINICAL HISTORY: 83 years-old Male presenting with low o2. TECHNIQUE: Portable upright AP view of the chest was obtained. COMPARISON: 08/12/2018. FINDINGS: Atherosclerosis of the aortic arch. Prominence of the thoracic aorta. Cardiac silhouette normal in si ze. Elevation of the right hemidiaphragm with right basilar poor aeration. Left lung and pleural spac e clear. Degenerative changes of the thoracic spine. IMPRESSION: 1. Poor aeration of the left lung base secondary to right hemidiaphragm elevation. Fluoroscopic snif f test could assess for hemidiaphragm paralysis. Electronically signed by: Roberto Blackburn M.D. 08/12/2018 10:47 PM
[2018-08-13] MEDS: IPRATROPIUM BROMIDE NEB SOLN 0.02% 2.5 ML VIAL INH SCH ×3 (01:54→14:00)
[2018-08-13] MEDS: LEVALBUTEROL 1.25MG/0.5ML NEB INH SCH ×3 (01:54→14:01)
[2018-08-13] MEDS ORDERED: XOPENEX/ATROVENT 1.25mg/0.5MG NEB COMBO NEB SCH (02:00)
[2018-08-13] MEDS: PIPERACILLIN/TAZOBACTAM 3.375 GM in DEXTROSE 5% 100 ML IV SCH ×2 (05:49→13:46)
--- NOTE | 2018-08-13 06:29 | Ultrasound Report ---
BILATERAL LOWER EXTREMITY VENOUS DOPPLER HISTORY: Acute pain and swelling of the bilateral lower legs pe workup COMPARISON STUDY: None. FINDINGS: There is normal compressibility, flow, and augmentation within the bilateral lower extremit y deep venous systems. IMPRESSION: No sonographic evidence of deep venous thrombosis within the right or left lower extremity. Electronically signed by: Óscar Enriquez M.D. 08/13/2018 6:28 AM
[2018-08-13 06:42] LABS: HCO3 ABG 23 mmol/L (19-24); Hematocrit (blood only) 40.1 % (42-52); Hemoglobin 13.7 g/dL (14.0-18.0); Mean Corpuscular Hgb Conc 34.2 g/dL (32-36); Mean Platelet Volume 11.5 fL (7.4-10.4); Oxygen Saturation ABG 95.9 % (90-95); PCO2 ABG 40 mmHg (35-46); PO2 ABG 80 mm/Hg (80-95); Platelet Count 144 K/uL (130-400); RDW Coefficient of Variation 12.2 % (11.5-14.5); RDW Standard Deviation 44.7 fL (36.4-46.3); Red Blood Count 4.01 M/uL (4.7-6.1); White Blood Count 11.45 K/uL (4.8-10.8); pH ABG 7.38 (7.35-7.45)
[2018-08-13 06:43] LABS: Allen Test Pos (Pos)
--- NOTE | 2018-08-13 06:57 | XRay Report ---
XR chest 1V portable HISTORY: 83 years-old Male hypoxia acute hypoxia COMPARISON: Chest CT and chest radiograph 08/12/2018 TECHNIQUE: Portable AP view of the chest FINDINGS: Cardiomediastinal and hilar silhouettes appear unchanged. No pneumothorax or large pleural effusion. Unchanged right hemidiaphragmatic elevation with right basilar opacities. No overt pulmonary edema. B ones of the chest appear grossly intact. IMPRESSION: 1. No acute process. 2. Moderate right hemidiaphragmatic elevation with right basilar opacities suggestive of atelectasis. The above report was generated using voice recognition software. It may contain grammatical, syntax o r spelling errors. Electronically signed by: Óscar Enriquez M.D. 08/13/2018 6:56 AM
[2018-08-13 07:15] LABS: BUN Creatinine Ratio 14.3 (10-20); Calcium 7.9 mg/dl (8.5-10.1); Creatinine Clr Calc Pharmacy 50.2 ml/min; Est GFR (African American) 55.9; Est GFR (Non-African American) 48.2; Potassium 4.1 mmol/L (3.5-5.1)
[2018-08-13] MEDS ORDERED: TURMERIC ROOT EXTRACT 1053 MG PO SCH (09:00)
[2018-08-13] MEDS ORDERED: MULTIVITAMIN TAB PO SCH (09:00)
[2018-08-13] MEDS ORDERED: ATORVASTATIN 40 MG TAB PO SCH (09:00)
--- NOTE | 2018-08-13 13:23 | XRay Report ---
XR chest 2V routine CLINICAL HISTORY: 83 years-old Male presenting with atelectasis. TECHNIQUE: PA and lateral views of the chest were obtained. COMPARISON: 08/13/2018 at 6:36 AM. FINDINGS: Atherosclerosis of the aortic arch. Tortuosity of the descending thoracic aorta. Cardiac silhouette n ormal in size. Metallic opacity at the right lung base. No other focal opacity. No large effusion or pneumothorax. Degenerative changes of the thoracic spine. Upper abdomen normal. IMPRESSION: 1. Right basilar atelectasis or scarring. Electronically signed by: Roberto Blackburn M.D. 08/13/2018 1:21 PM
--- NOTE | 2018-08-13 15:13 | Hospitalist Progress Note ---
Date of Service August 13, 2018 Assessment & Plan (1) Acute respiratory failure with hypoxia: Developed severe hypoxia with O2 sats in the 80's after outpatient right shoulder arthroscopy with scalene block. Sent to ED for evaluation. Tachycardic and tachypneic in ED. O2 sats still low despite 15 L nonrebreather face mask. BiPAP utilized. Chest x-ray showed elevation of right hemidiaphragm and right basilar density, possible right pleural effusion. CT of chest demonstrated elevation of right hemidiaphragm with atelectasis of RLL and RML. Chest x-ray this morning similar to admission film. Pulmonary Medicine consult obtained. 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 ( = "acute postprocedural pulmonary insufficiency" ) Discussed with Anesthesiology; scalene blocks usually resolve within 24 hours. Repeat chest-ray this afternoon showed improvement of RLL atelectasis. Oxygenating well on RA and doing well clinically. Discharge to home. Continue incentive spirometry. Follow-up chest x-ray in clinic. (2) History of arthroscopy of right shoulder: Postop management per Ortho. (3) Abnormal EKG: EKG demonstrated ST, possible age-indeterminate inferior and anterior infarcts. EKG compared to clinic EKG's. Similar inferior and anterior findings were noted 03/24/18 and 05/04/12. Echo performed 03/24/18 showed diffuse hypokinesis, overall LVEF 40-44%, moderate aortic regurgitation, enlargement of aortic root (45 mm). Ongoing management per primary care and / or Cardiology. (4) DVT prophylaxis: SCD's ordered. Ambulating. (5) Discharge planning issues: Discharge to home. Medical follow-up with Dr. Vega. Ortho follow-up with Dr. Negrete. (6) Cardiomyopathy: (7) Aortic regurgitation: Subjective Recheck for hypoxia. Patient seen in his room around 14:45. Feels well. No chest pain, cough, SOB. Anxious to go home. Performing incentive spirometry. Oxygenating well. Now maintaining O2 sats in 90's on RA. Physical Exam 2 Vital Signs (Past 24 Hours): Last Vital Signs Temp 36.9 C 08/13/18 12:00 Pulse 86 08/13/18 14:03 Resp 16 08/13/18 14:03 BP 122/70 08/13/18 12:00 Pulse Ox 93 08/13/18 14:03 Constitutional: no acute distress Respiratory: no respiratory distress Auscultation: lungs clear to auscultation bilaterally Cardiovascular: Rate/Rhythm: regular rate and regular rhythm Vessels: no JVD Extremities: no calf tenderness and no edema Gastrointestinal (Abdomen): normal bowel sounds, soft, nontender, no hepatosplenomegaly Musculoskeletal: Extremities: + extremities abnormal to inspection (RUE immobilized) Skin: no rashes, warm and dry Psychiatric: Orientation: alert and oriented x 3
--- NOTE | 2018-08-13 16:20 | Consultation Report ---
DATE OF CONSULTATION: 08/13/2018 PULMONARY CONSULTATION TIME: 11:30 a.m. REPORT OF CONSULTATION: The patient was seen in room 240, bed 1. He is an 83-year-old male who is being seen because of hypoxia. His history is that yesterday as an outpatient, he underwent a right shoulder surgery at an outpatient surgery center. He had suffered a fall about a year earlier and had some chronic pain in the right shoulder. A scope was being done to evaluate for possible rotator cuff tear. Apparently, no tear was found. The patient did have significant hypoxia noted in the immediate post-procedure time frame. He was requiring oxygen up to 15 liters and was still having difficulty maintaining his saturations. Surprisingly, the patient himself was not short of breath at all. He insists that he has not had any dyspnea either immediately postop or even up until the present time. He also has not had any cough or sputum production or hemoptysis. He denies any vomiting or being told that he might have vomited. He indicates that he feels well. He was on a nonrebreather mask in the Emergency Room. Subsequently, he was placed on BiPAP, which he wore overnight. During the day today, his oxygen was gradually decreased and he is now on room air with saturations in the low to mid 90s. The patient denies any prior pulmonary problems such as asthma, emphysema, tuberculosis or pneumonia. He has never smoked. PAST SURGICAL HISTORY: 1. Cataract surgery. 2. Upper endoscopy due to duodenal ulcer. PAST MEDICAL HISTORY: 1. TIA, March 2018. 2. Irritable bowel syndrome. 3. Anxiety. 4. Hyperlipidemia. 5. Actinic keratosis. 6. Chronic kidney disease stage III. 7. Peptic ulcer disease as noted. SOCIAL HISTORY: Tobacco never. ETOH - a couple beers 2 or 3 times per week, it is all the patient describes it. FAMILY HISTORY: Mother at age 76, CHF and colon cancer. Father at age 75, lung cancer. 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 ALLERGIES: No known allergies. REVIEW OF SYSTEMS: Most things are denied. The patient does admit to snoring. There have been no observed apneas. For many years, he has had sleep onset insomnia. It typically takes between 1 and 3 hours to fall asleep. He will get up out of bed and go to another room and even when he does ultimately fall asleep, he will only sleep for a total of 4-6 hours. He does nap daily, he says for about 30 minutes. In spite of this, his energy level is fairly good. The patient denies having shoulder pain. His appetite is good. He denies other complaints except as noted. Ten systems reviewed. PHYSICAL EXAMINATION: GENERAL: The patient is a pleasant 83-year-old male who was cooperative, alert and oriented. He was in no distress. VITAL SIGNS: Weight is 101 kilograms for a BMI of 31.1. The cardiac rate is 94 per minute. Rhythm was regular. Blood pressure 130/73. HEENT: Eye exam suggested prior cataract surgeries. Nares were clear. Mouth exam shows a Mallampati grade 2 pharynx. NECK: He has a fairly large neck. No lymph nodes palpable. LUNGS: Lung hazel were clear bilaterally. He seemed to have very good aeration even in the area of the right lower lobe posteriorly. No wheezes, rales, or rhonchi were heard. Respiratory rate was 20. Saturation on room air was 93%. ABDOMEN: Soft. Bowel sounds were present. There was no tenderness to palpation, masses, or organomegaly. EXTREMITIES: Showed no cyanosis, clubbing or edema. LABORATORY DATA: Chest x-ray done last evening showed what appeared to be increased opacification in the right mid and lower lung field. This is likely related to an elevated diaphragm. CAT scan of the chest was done last evening. This showed an elevated right hemidiaphragm with significant atelectasis of the right lower lobe and partial right middle lobe. The aorta was mildly ectatic at 4.1 cm. Chest x-ray done this morning again showed moderate right hemidiaphragm elevation, which was not significantly changed. Venous Doppler last night showed no evidence of DVT. White count is 11.45. Hemoglobin 13.7. Platelets 144,000. Coags were normal. Arterial blood gas last evening at 5:13 p.m. reported pH 7.33, pCO2 of 44, pO2 of 42. Reportedly, this was on 100% oxygen. Follow up blood gas at 10:22 p.m. showed pH of 7.39, pCO2 of 38, pO2 of 57 on 80% oxygen. Blood gas this morning showed a pH of 7.38, pCO2 of 40 and a pO2 of 80, reportedly on 15 liters of oxygen. Electrolytes showed sodium 139, potassium 4.1, chloride 110, and bicarbonate 23. BUN is 19 with a creatinine of 1.35. Glucose was 146. Calcium 7.9. Liver functions were normal. Troponin was negative. Urinalysis was negative. Flu test was negative. EKG showed a sinus tachycardia with a rate of 108. There was a left anterior hemiblock. 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 There is very little R-wave progression across the precordium. Reportedly, this reflects a change from prior EKG done in 2012. IMPRESSION: 1. Acute respiratory failure with hypoxia. 2. 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 3. Rule out obstructive sleep apnea. 4. Apparent prior anteroseptal MS based upon EKG. COMMENTS AND RECOMMENDATIONS: The patient seems very stable and his oxygenation has improved dramatically. He is extremely anxious for discharge and insists that he will sign out against medical advice if need be. I have suggested to him that we obtain a followup x-ray at about 1:00 p.m. Based upon his physical exam, I am expecting that it will show some improvement and possibly very significant improvement. I believe it is less likely that he had aspiration or mucus plugging as a cause for the x-ray findings. The patient does have snoring and insomnia with insufficient sleep time. Consideration would be given to doing a sleep study as an outpatient. The EKG is markedly abnormal and it would seem reasonable to have the patient get an echo at some point in time unless it has been otherwise done. Case has been discussed with Dr. Rubio and we will review the 1 p.m. x-ray. Thank you for asking me to assist in his care.
--- NOTE | 2018-08-15 08:20 | Discharge Summary ---
Date of Service August 15, 2018 Admission HPI Per Admitting Provider 83-year-old male who was sent to the ED from [facility] outpatient surgical center for evaluation of hypoxia. Patient was they are having a scheduled arthroscopic procedure of his right shoulder. Postoperatively, patient developed profound hypoxia with oxygen saturations in the 80s. Patient was asymptomatic without chest pain or shortness of breath. He was then brought to the ED for further evaluation. Patient reports he has been feeling well recently. He denies any other recent illnesses, fevers, chills. He denies chest pain shortness of breath. No lightheadedness, dizziness, diaphoresis, syncopal events. He denies abdominal pain, nausea, vomiting, diarrhea. He denies any urinary symptoms. In the ED, CTA chest was negative for pulmonary embolism however demonstrated significant atelectasis of the right lower lobe and to a lesser extent the right middle lobe. Patient's oxygen saturation remained in the 80s with supplemental oxygen and was therefore placed on BiPAP and is now saturating in the low 90s. Labs are unremarkable. Patient was given IVF and a dose of IV Zosyn. Admission Exam Per Admitting Provider Constitutional: WD/WN, vitals as above Eyes: PERRL, conjunctivae normal, anicteric sclerae ENMT: external ear and nose normal, oropharynx normal Respiratory: normal respiratory effort; no respiratory distress Auscultation: + diminished lung sounds (Right mid to lower lung hazel otherwise clear) Cardiovascular: Rate/Rhythm: regular rate and regular rhythm Vessels: normal peripheral pulses Extremities: no edema Gastrointestinal (Abdomen): normal bowel sounds, soft, nontender, no hepatosplenomegaly Musculoskeletal: S/P right shoulder surgery, surgical dressing dry and intact, right upper extremity in sling Skin: no rashes, warm and dry Neurologic: PERRL, EOMI, accommodation nl, no face palsy, no dysarthria Psychiatric: A+Ox3, euthymic affect Principal Diagnosis acute hypoxic respiratory failure secondary to scalene nerve block elevated right hemidiaphragm pulmonary atelectasis RLL + RML s/p right shoulder arthroscopy abnormal EKG (old findings of possible age-indeterminate inferior and anterior infarcts) cardiomyopathy aortic regurgitation, moderate. dilated aortic root Discharge Data Allergies Allergy/AdvReac Type Severity Reaction Status Date / Time No Known Allergies Allergy Unverified 08/12/18 14:38 Consultations 08/12/18 16:31 ED Decision to Admit Stat 08/13/18 07:18 Consult Pulmonology Routine Ordered Studies 08/12/18 15:12 CT chest w con Stat 08/12/18 22:22 US venous doppler [facility] Urgent Hospital Course (1) Acute respiratory failure with hypoxia: Developed severe hypoxia with O2 sats in the 80's after outpatient right shoulder arthroscopy with scalene block. Sent to ED for evaluation. Tachycardic and tachypneic in ED. O2 sats still low despite 15 L nonrebreather face mask. BiPAP utilized. Chest x-ray showed elevation of right hemidiaphragm and right basilar density, possible right pleural effusion. CT of chest demonstrated elevation of right hemidiaphragm with atelectasis of RLL and RML. Chest x-ray morning of 08/13 similar to admission film. Pulmonary Medicine consult obtained. 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 ( = "acute postprocedural pulmonary insufficiency" ) Discussed with Anesthesiology; scalene blocks usually resolve within 24 hours. Repeat chest-ray afternoon of 08/13 showed improvement of RLL atelectasis. Patient was oxygenating well on RA and doing well clinically. Continue incentive spirometry. Follow-up chest x-ray in clinic. Follow-up with Pulmonary Medicine if radiographic abnormalities persist. (2) History of arthroscopy of right shoulder: Postop management per Ortho. (3) Abnormal EKG: EKG demonstrated ST, possible age-indeterminate inferior and anterior infarcts. EKG compared to clinic EKG's. Similar inferior and anterior findings were noted 03/24/18 and 05/04/12. Echo performed 03/24/18 showed diffuse hypokinesis, overall LVEF 40-44%, moderate aortic regurgitation, enlargement of aortic root (45 mm). Ongoing management per primary care and / or Cardiology. (4) DVT prophylaxis: SCD's ordered. Ambulating. (5) Discharge planning issues: Discharged to home. Medical follow-up with Dr. Vega. Ortho follow-up with Dr. Negrete. (6) Cardiomyopathy: (7) Aortic regurgitation: Total Time Total Time Spent Total Time Spent (In Minutes): 50 Discharge Plan Discharge Items Patient Disposition: Home - Self-Care Reason For Visit: low oxygen level Discharge Diagnosis: low oxygen level from nerve block, improving Condition: Good Discharge Goals: Decrease discomfort and Improve disease control Activity: As commented below Activity Comment: As instructed by Dr. Negrete Non-emergency contact: Primary Care Provider, Hospitalist and Surgeon Call non-emergency contact if: you have any medication questions and your symptoms worsen Follow-up/Referrals: Stephan Negrete DO [Surgeon] - Alan Vega DO [Primary Care Provider] - (08/16/2018 9:20 AM Dain Cannon PA-C (works with Dr. Vega) [facility] - [place]) Diet: Heart Healthy Add Provider Instructions: OTHER INSTRUCTIONS: Please do breathing exercises for the next 3 days. 10 slow / deep breaths, every 2 hours while awake. Seek medical attention if you have: * temperature above 101 * chest pain or trouble breathing * abdominal pain, nausea, vomiting * diarrhea, dark stools or bloody stools * any unanswered questions or concerns Call [phone] if symptoms are severe. Call if you have any questions or problems. My cell # is [phone]. You can also reach a [facility] hospitalist on duty at [facility] 24 hours a day by calling [phone]. Prescriptions: Continue multivitamin Tablet 1 tab PO DAILY RF: 0 atorvastatin 40 mg Tablet 40 mg PO DAILY RF: 0 aspirin-dipyridamole [Aggrenox] 25-200 mg Capsule, Er Multiphase 12 Hr 1 cap PO DAILY RF: 0 aspirin 325 mg Tablet 325 mg PO DAILY RF: 0 oxycodone-acetaminophen [Percocet] 5-325 mg Tablet 1 - 2 tab PO Q6H PRN (Reason: Pain) RF: 0 diazepam 5 mg Tablet 5 mg PO Q8 PRN (Reason: Anxiety) RF: 0 B-complex with vitamin C [Super B Complex-Vitamin C] Tablet 1 tab PO DAILY RF: 0 turmeric root extract 1,053 mg Tablet 1,053 mg PO DAILY RF: 0 [id number] Tablet 1 tab PO DAILY RF: 0 Stand-Alone Forms: My [facility] Discharge Orders: Discharge Order (Routine); Ordered 08/13/18 Ordered By: Flavio Rubio Admission Data Admit Date/Time: 08/12/18 17:11 Attending Provider: Flavio Rubio Admit Provider: Christiano Orellana Primary Care Provider: Alan Vega V Other Providers: Christiano Orellana ; Jacky Nation Service: Telemetry Other Interventions: Discharge Summary Assessment (RN) Last Done: 08/13/18 12:00 DC Date/Time DO NOT enter until pt leaves facility: 08/13/18 15:52
== END 2018-08-13 15:52 | disposition home or self-care (01) | DRG 917 ==
LOC: ED 13:59 → 2S 17:11